=== PATIENT | female | born 1930 | race African-American/Black ===

== ENCOUNTER 2018-06-02 11:28 | Emergency (ER) | payer OTHER, MEDICAID ==
[~2018-06-02] VITALS: Ht 152.4 cm; Wt 49.0 kg
[~2018-06-02 11:28] MED LIST: ALPR-392 PO; AMLO5TAB88 PO; ASPI-518 PO; CHOL200074 PO; DONE23TA3 PO; FOLI-43 PO; GABA300C PO; LOVA40TA73 PO; MEMA10TA2 PO; METO25TA6 PO; MIRT30TA PO; OMEP20CA4; ZOLP5TAB2 PO
[2018-06-02] MEDS ORDERED: ACETAMINOPHEN 650MG/20.3ML UDC PO ONE (13:00)
[2018-06-02 14:05] VITALS: BP 146/57
== END 2018-06-02 14:37 | disposition home or self-care (01) ==
LOC: ER 11:28
DX: S09.8XXA Other specified injuries of head, initial encounter (principal); M25.551 Pain in right hip; M25.561 Pain in right knee; M25.511 Pain in right shoulder; R00.1 Bradycardia, unspecified; I10 Essential (primary) hypertension; F03.90 Unspecified dementia, unspecified severity, without behavioral disturbance, psychotic disturbance, mood disturbance, and anxiety; Z86.73 Personal history of transient ischemic attack (TIA), and cerebral infarction without residual deficits; Z79.82 Long term (current) use of aspirin; Z88.0 Allergy status to penicillin; Z88.2 Allergy status to sulfonamides; Z90.49 Acquired absence of other specified parts of digestive tract; W01.0XXA Fall on same level from slipping, tripping and stumbling without subsequent striking against object, initial encounter; Y93.89 Activity, other specified; Y92.018 Other place in single-family (private) house as the place of occurrence of the external cause
CPT/HCPCS: 71045; 73030; 73502; 73560; 82962; 93005; 99284